=== PATIENT | female | born 1975 | race Caucasian/White ===

== ENCOUNTER 2016-10-17 17:34 | Observation (INO) | payer BC, OTHER ==
[2016-10-17] VITALS (8 sets, daily range): BP systolic 128–132; BP diastolic 62–77; PULSE 75–80; RESP 16–18; TEMP 96.7–98.5; O2SAT 95–97
[~2016-10-17] VITALS: Ht 165.1 cm; Wt 120.0 kg
[~2016-10-17 17:34] MED LIST: BACT800T5 PO; CEPH-460 PO; IBUP800T23 PO; MUPI2OIN TOPICAL
[2016-10-17] MEDS ORDERED: SODIUM CHLORIDE 0.9% FLUSH 10 ML FLUSH IVF PRN (18:15)
--- NOTE | 2016-10-17 18:22 | PD ---
HPI Chief Complaint: Chest Pain Time Seen by Provider: 18:06 Travel History International Travel<30 days: No Contact w/Intl Traveler<30days: No Traveled to known affect area: No History of Present Illness HPI This is a 41-year-old female with no significant past history, presents today with complaints of palpitations. Patient reports that she's been feeling her heart beating in her chest. She reports it's bleeding so hard that it hurts. She also reports tightness in her chest. She denies any nausea or diaphoresis. She does report shortness of breath with the discomfort. The patient has no history of cardiovascular disease. Patient also reports swelling of her bilateral lower extremities for the last several days. She states that she goes to bed the swelling goes down when she is up on her feet, the swelling returns. 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) Reported Meds & Prescriptions Reported Meds & Active Scripts Active No Active Prescriptions or Reported Medications Review of Systems Except as stated in HPI: all other systems reviewed are Neg General / Constitutional: No: Fever, Chills HENT: No: Headaches, Lightheadedness Cardiovascular: Positive: Chest Pain or Discomfort (tightness), Palpitations, Edema, No: Irregular Rhythm, Syncope Respiratory: Positive: Shortness of Breath, No: Cough (1 the palpitations,), Wheezing Gastrointestinal: No: Nausea (bilateral lower extremity), Vomiting, Abdominal Pain Genitourinary: No: Dysuria, Nocturia Musculoskeletal: Positive: Edema (during the day, goes down at night.), No: Weakness, Pain Neurologic: No: Weakness, Dizziness, Ataxia, Headache Physical Exam Narrative GENERAL: Well-nourished, well-developed patient, in no acute respiratory distress.. SKIN: Focused skin assessment warm/dry. HEAD: Normocephalic/atraumatic. EYES: No scleral icterus. No injection or drainage. NECK: Supple, trachea midline. No JVD or lymphadenopathy. CARDIOVASCULAR: Regular rate and rhythm without murmurs, gallops, or rubs. RESPIRATORY: Breath sounds equal bilaterally. No accessory muscle use. GASTROINTESTINAL: Abdomen soft, non-tender, nondistended. No rebound or guarding. MUSCULOSKELETAL: No cyanosis, or trace pretibial edema. NEUROLOGICAL: Awake and alert. Cranial nerves II through XII intact. Motor grossly within normal limits. Five out of 5 muscle strength in all muscle groups. Normal speech. Data Data Last Documented VS Vital Signs Date Time Temp Pulse Resp B/P Pulse Ox O2 Delivery O2 Flow Rate FiO2 10/17/16 18:47 97 Room Air 10/17/16 17:48 98.5 80 16 130/64 Orders Electrocardiogram (10/17/16 18:12) B-Type Natriuretic Peptide (10/17/16 18:12) Ckmb (Isoenzyme) Profile (10/17/16 18:12) Complete Blood Count With Diff (10/17/16 18:12) Comprehensive Metabolic Panel (10/17/16 18:12) Magnesium (Mg) (10/17/16 18:12) Troponin I (10/17/16 18:12) Chest, Single Ap (10/17/16 18:12) Ecg Monitoring (10/17/16 18:12) Bilateral Bp Monitoring (10/17/16 18:12) Iv Access Insert/Monitor (10/17/16 18:12) Oximetry (10/17/16 18:12) Oxygen Administration (10/17/16 18:12) Sodium Chloride 0.9% Flush (Ns Flush) (10/17/16 18:15) Thyroid Stimulating Hormone (10/17/16 18:12) Labs Laboratory Tests Test 10/17/16 18:31 White Blood Count 9.5 TH/MM3 Red Blood Count 4.70 MIL/MM3 Hemoglobin 11.8 GM/DL Hematocrit 35.7 % Mean Corpuscular Volume 75.9 FL Mean Corpuscular Hemoglobin 25.1 PG Mean Corpuscular Hemoglobin 33.0 % Concent Red Cell Distribution Width 13.5 % Platelet Count 277 TH/MM3 Mean Platelet Volume 7.8 FL Neutrophils (%) (Auto) 71.0 % Lymphocytes (%) (Auto) 20.1 % Monocytes (%) (Auto) 4.7 % Eosinophils (%) (Auto) 3.8 % Basophils (%) (Auto) 0.4 % Neutrophils # (Auto) 6.8 TH/MM3 Lymphocytes # (Auto) 1.9 TH/MM3 Monocytes # (Auto) 0.4 TH/MM3 Eosinophils # (Auto) 0.4 TH/MM3 Basophils # (Auto) 0.0 TH/MM3 CBC Comment DIFF FINAL Differential Comment Sodium Level 141 MEQ/L Potassium Level 3.9 MEQ/L Chloride Level 107 MEQ/L MDM Medical Decision Making Medical Screen Exam Complete: Yes Emergency Medical Condition: Yes Differential Diagnosis ACS versus paroxysmal atrial fibrillation versus electrolyte abnormalities versus CHF Narrative Course 41-year-old female presents to the palpitations and chest tightness. The patient has no cardiac history. EKG shows first-degree sinus degree block without any evidence of acute ST elevation or depression. Cardiac enzymes are pending at this time. The patient be signed out to Dr. Xavier, physician replacing me at change of shift. Disposition will be per him. At the very least I think she would benefit from chest pain center admission. Diagnosis Primary Impression: Chest pain Additional Impressions: Palpitations Bilateral lower extremity edema Scripts No Active Prescriptions or Reported Meds Bashir Amezquita MD Oct 17, 2016 18:22
[2016-10-17 18:47] LABS: AUTOMATED NEUTROPHIL # 6.8 TH/MM3 (1.8-7.7); BASOPHIL % 0.4 % (0.0-2.0); EOSINOPHIL # 0.4 TH/MM3 (0-0.4); EOSINOPHIL % 3.8 % (0.0-4.0); HEMATOCRIT 35.7 % (35.0-46.0); HEMO FLAGS DIFF FINAL; LYMPH % 20.1 % (9.0-44.0); LYMPHOCYTE # 1.9 TH/MM3 (1.0-4.8); MEAN CELL VOLUME 75.9 FL (80.0-100.0); MEAN CORPUSCULAR HEMOGLOBIN 25.1 PG (27.0-34.0); MONO % 4.7 % (0.0-8.0); PLATELET COUNT 277 TH/MM3 (150-450); RED CELL DISTRIBUTION WIDTH 13.5 % (11.6-17.2); WHITE BLOOD COUNT 9.5 TH/MM3 (4.0-11.0)
[2016-10-17 18:56] LABS: CHLORIDE 107 MEQ/L (98-107); POTASSIUM 3.9 MEQ/L (3.5-5.1); SODIUM (NA) 141 MEQ/L (136-145)
[2016-10-17 19:00] LABS: ANION GAP 6 MEQ/L (5-15); BICARBONATE 27.8 MEQ/L (21.0-32.0); MAGNESIUM 2.1 MG/DL (1.5-2.5)
[2016-10-17 19:01] LABS: BLOOD UREA NITROGEN 8 MG/DL (7-18)
[2016-10-17 19:03] LABS: ALT (GPT) 55 U/L (10-53)
[2016-10-17 19:04] LABS: AST (GOT) 53 U/L (15-37); GLOMERULAR FILTRATION RATE 128 ML/MIN (>89)
[2016-10-17 19:05] LABS: TOTAL BILIRUBIN ADULT 0.3 MG/DL (0.2-1.0)
--- NOTE | 2016-10-17 19:05 | PD ---
Physical Exam Date Seen by Provider: Oct 17, 2016 Narrative GENERAL: SKIN: Warm and dry. HEAD: Atraumatic. Normocephalic. EYES: Pupils equal and round. No scleral icterus. No injection or drainage. ENT: No nasal bleeding or discharge. Mucous membranes pink and moist. NECK: Trachea midline. No JVD. CARDIOVASCULAR: Regular rate and rhythm. RESPIRATORY: No accessory muscle use. Clear to auscultation. Breath sounds equal bilaterally. GASTROINTESTINAL: Abdomen soft, non-tender, nondistended. MUSCULOSKELETAL: Extremities without clubbing, cyanosis, or edema. No obvious deformities. NEUROLOGICAL: Awake and alert. No obvious cranial nerve deficits. Motor grossly within normal limits. Five out of 5 muscle strength in the arms and legs. Normal speech. PSYCHIATRIC: Appropriate mood and affect; insight and judgment normal. Data Data Last Documented VS Vital Signs Date Time Temp Pulse Resp B/P Pulse Ox O2 Delivery O2 Flow Rate FiO2 10/17/16 18:47 97 Room Air 10/17/16 17:48 98.5 80 16 130/64 Orders Electrocardiogram (10/17/16 18:12) B-Type Natriuretic Peptide (10/17/16 18:12) Ckmb (Isoenzyme) Profile (10/17/16 18:12) Complete Blood Count With Diff (10/17/16 18:12) Comprehensive Metabolic Panel (10/17/16 18:12) Magnesium (Mg) (10/17/16 18:12) Troponin I (10/17/16 18:12) Chest, Single Ap (10/17/16 18:12) Ecg Monitoring (10/17/16 18:12) Bilateral Bp Monitoring (10/17/16 18:12) Iv Access Insert/Monitor (10/17/16 18:12) Oximetry (10/17/16 18:12) Oxygen Administration (10/17/16 18:12) Sodium Chloride 0.9% Flush (Ns Flush) (10/17/16 18:15) Thyroid Stimulating Hormone (10/17/16 18:12) Labs Laboratory Tests Test 10/17/16 18:31 White Blood Count 9.5 TH/MM3 Red Blood Count 4.70 MIL/MM3 Hemoglobin 11.8 GM/DL Hematocrit 35.7 % Mean Corpuscular Volume 75.9 FL Mean Corpuscular Hemoglobin 25.1 PG Mean Corpuscular Hemoglobin 33.0 % Concent Red Cell Distribution Width 13.5 % Platelet Count 277 TH/MM3 Mean Platelet Volume 7.8 FL Neutrophils (%) (Auto) 71.0 % Lymphocytes (%) (Auto) 20.1 % Monocytes (%) (Auto) 4.7 % Eosinophils (%) (Auto) 3.8 % Basophils (%) (Auto) 0.4 % Neutrophils # (Auto) 6.8 TH/MM3 Lymphocytes # (Auto) 1.9 TH/MM3 Monocytes # (Auto) 0.4 TH/MM3 Eosinophils # (Auto) 0.4 TH/MM3 Basophils # (Auto) 0.0 TH/MM3 CBC Comment DIFF FINAL Differential Comment Sodium Level 141 MEQ/L Potassium Level 3.9 MEQ/L Chloride Level 107 MEQ/L Carbon Dioxide Level 27.8 MEQ/L Anion Gap 6 MEQ/L Blood Urea Nitrogen 8 MG/DL Random Glucose 105 MG/DL Calcium Level 8.3 MG/DL Magnesium Level 2.1 MG/DL Albumin 3.3 GM/DL MDM Medical Record Reviewed: Yes Supervised Visit with STEVE: No Interpretation(s) nsr 81, first degree av block, no stemi pattern, mild flattening of t wave on avl Diagnosis Primary Impression: Chest pain Qualified Code: R07.9 - Chest pain, unspecified type Additional Impressions: Palpitations Bilateral lower extremity edema Admitting Information Admitting Physician Requests: Observation Patient Instructions: General Instructions Departure Forms: Tests/Procedures Scripts No Active Prescriptions or Reported Meds Lealnd Xavier MD Oct 17, 2016 19:05
[2016-10-17 19:06] LABS: ALKALINE PHOSPHATASE 96 U/L (45-117); CREATINE KINASE 121 U/L (26-192)
--- NOTE | 2016-10-17 19:06 | RADRPT ---
EXAM DATE/TIME: 10/17/2016 18:30 [facility] COMPARISON: No previous studies available for comparison. INDICATIONS : Chest pain. MEDICAL HISTORY : None. SURGICAL HISTORY : None. ENCOUNTER: Initial ACUITY: 1 day PAIN SCORE: 4/10 LOCATION: chest Substernal. FINDINGS: A single view of the chest demonstrates the lungs to be symmetrically aerated without evidence of mas s, infiltrate or effusion. The cardiomediastinal contours are unremarkable. Osseous structures are intact. CONCLUSION: No evidence of acute cardiopulmonary disease. Juan Rios MD on October 17, 2016 at 19:05 Board Certified Radiologist. This report was verified electronically.
[2016-10-17] MEDS ORDERED: SODIUM CHLORIDE 0.9% FLUSH 10 ML FLUSH IV FLUSH PRN (20:15)
[2016-10-17] MEDS ORDERED: ONDANSETRON HCL 4 MG/2 ML VIAL IVP ONE (20:30)
[2016-10-17] MEDS: SODIUM CHLORIDE 0.9% FLUSH 10 ML FLUSH IV FLUSH SCH (20:43)
[2016-10-17 22:12] LABS: BETA HCG QUANT LESS THAN 1 MIU/ML (0-5)
[2016-10-17 22:13] LABS: CREATINE KINASE 101 U/L (26-192)
[2016-10-17 22:26] LABS: CKMB 0.9 NG/ML (0.5-3.6)
[2016-10-17] MEDS ORDERED: NITROGLYCERIN 0.4 MG SL 25 TABS/BTL SL ONE (22:30)
--- NOTE | 2016-10-17 23:03 | RADRPT ---
EXAM DATE/TIME: 10/17/2016 22:41 [facility] COMPARISON: No previous studies available for comparison. INDICATIONS : Bilateral leg swelling. Chest pain. MEDICAL HISTORY : Ovarian cyst. MRSA. SURGICAL HISTORY : Ovarian cyst removed. ENCOUNTER: Initial ACUITY: 1 week PAIN SCORE: 2/10 LOCATION: Bilateral leg. TECHNIQUE: Venous ultrasound of the left and right leg was performed from the inguinal ligament to the proximal calf. Real-time, color Doppler and spectral tracing, compression and augmentation techniques were us ed. FINDINGS: RIGHT LEG: There is normal compressibility of the deep venous system from the inguinal region to the proximal ca lf. No echogenic clot is seen in the lumen of the common femoral, femoral, popliteal, and posterior tibial veins. There is a normal response of the venous system to proximal and distal augmentation an d respiration. LEFT LEG: There is normal compressibility of the deep venous system from the inguinal region to the proximal ca lf. No echogenic clot is seen in the lumen of the common femoral, femoral, popliteal, and posterior tibial veins. There is a normal response of the venous system to proximal and distal augmentation an d respiration. CONCLUSION: The study is negative for deep venous thrombosis bilateral lower extremity. Chris Neely MD on October 17, 2016 at 23:01 Board Certified Radiologist. This report was verified electronically.
[2016-10-17] MEDS ORDERED: MORPHINE SULFATE 4 MG/ML INJ IV PUSH ONE (23:45)
[2016-10-17] MEDS ORDERED: IOHEXOL 350 MG/ML 10 ML VIAL (for RAD DIAG) IV ONE (23:55)
--- NOTE | 2016-10-18 00:02 | RADRPT ---
EXAM DATE/TIME: 10/17/2016 23:40 [facility] COMPARISON: No previous studies available for comparison. INDICATIONS : Chest pain. Evaluate for pulmonary embolism IV CONTRAST: 75 cc Omnipaque 350 (iohexol) IV RADIATION DOSE: 21.74 CTDIvol (mGy) MEDICAL HISTORY : None SURGICAL HISTORY : None. ENCOUNTER: Initial ACUITY: 1 day PAIN SCALE: 4/10 LOCATION: Bilateral chest TECHNIQUE: Volumetric scanning of the chest was performed using a pulmonary embolism protocol MIP images were re constructed. Using automated exposure control and adjustment of the mA and/or kV according to patien t size, radiation dose was kept as low as reasonably achievable to obtain optimal diagnostic quality images. DICOM format image data is available electronically for review and comparison. Follow-up recommendations for detected pulmonary nodules are based at a minimum on nodule size and pa tient risk factors according to Fleischner Society Guidelines. FINDINGS: PULMONARY ARTERIES: No filling defects are seen in the pulmonary arteries through the segmental level. LUNGS: Small area of consolidation with air bronchograms adjacent to the right cardiophrenic angle measuring 1.5 cm. The left lung is clear. PLEURAE: There is no pleural thickening or pleural effusion. MEDIASTINUM: There is good visualization of the great vessels of the middle mediastinum. There is a 0.9 x 2.0 cm node in the right hilar region, nonspecific. CONCLUSION: 1. The study is negative for pulmonary embolism. 2. Small infiltrate in the medial right lower lung. 3. 2 cm right hilar node, nonspecific. Chris Neely MD on October 17, 2016 at 23:57 Board Certified Radiologist. This report was verified electronically.
[2016-10-18 04:00] VITALS: BP 132/78; PULSE 78; RESP 16; TEMP 97.2; O2SAT 96
[2016-10-18 04:09] LABS: CREATINE KINASE 92 U/L (26-192)
--- NOTE | 2016-10-18 05:03 | EKG ---
Date Performed: 10/17/2016 Time Performed: 21:31:27 PTAGE: 41 years EKG: Sinus rhythm NORMAL ECG Compared to the PREVIOUS TRACING T-wave inversion is seen in the inferior leads. This is nonspecific. TN EVIOUS TRACIN10/17/2016 18.29 DOCTOR: Zac Felix Interpretating Date/Time 10/18/2016 05:02:06
--- NOTE | 2016-10-18 05:10 | EKG ---
Date Performed: 10/17/2016 Time Performed: 18:29:23 PTAGE: 41 years EKG: Sinus rhythm WITH FIRST DEGREE AV BLOCK ABNORMAL ECG NO PREVIOUS TRACING DOCTOR: Zac Fleix Interpretating Date/Time 10/18/2016 05:08:56
--- NOTE | 2016-10-18 07:35 | EKG ---
Date Performed: 10/18/2016 Time Performed: 00:17:15 PTAGE: 41 years EKG: Sinus rhythm NORMAL ECG Compared to prior tracing no significant change PREVIOUS TRACING : 10/17/2016 21.31 DOCTOR: Zac Felix Interpretating Date/Time 10/18/2016 07:34:38
[2016-10-18 08:00] VITALS: O2SAT 93
[2016-10-18 08:03] VITALS: BP 127/76; PULSE 72; RESP 19; TEMP 96.5; O2SAT 96
[2016-10-18] MEDS: SODIUM CHLORIDE 0.9% FLUSH 10 ML FLUSH IV FLUSH SCH (09:00)
--- NOTE | 2016-10-18 09:33 | HHI.HP ---
HPI Service [facility] Primary Care Physician No Primary Care Physician Admission Diagnosis PALPITATIONS, CP R/O CA Diagnoses: (1) Chest pain Diagnosis: Principal Chief Complaint: Chest heaviness Travel History International Travel<30 Days: No Contact w/Intl Traveler <30 Da: No Traveled to Known Affected Are: No History of Present Illness Written by Frank Bruce, acting as scribe for Dr. Escobar on 10/18/16 at 09: 32. 41-year-old female with no chronic medical illnesses who presented to hospital because of chest discomfort. Patient indicates that over the last month she's been experiencing a heaviness type sensation in her chest where she describes a medium size elephant sitting on her chest with associated shortness of breath, nausea, lightheadedness. Patient also indicates that she been experiencing bilateral lower extremity edema over the last month .She states that the heaviness is constant with worsening on exertion. She states that it got worse yesterday when they have returned back from [place] so she came to the hospital for evaluation. Patient indicates that she was given some nitroglycerin last night which did provide minimal relief. Patient did have recent car travel to [place] and back to drop her son off to college. Patient had workup done which did not indicate any DVT or pulmonary emboli. Patient never undergone any cardiac workup previously. At the present time she is experiencing discomfort. She does not feel that she can participate in exercise stress test. Patient does not have a primary medical doctor at the present time. Patient was recommended observation chest pain center. 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 Father had heart disease but no indication of any myocardial infarction, coronary artery disease. Social History Patient denies any tobacco, alcohol or illicit drugs Physical Exam Vital Signs Vital Signs Date Time Temp Pulse Resp B/P Pulse Ox O2 Delivery O2 Flow Rate FiO2 10/18/16 08:03 96.5 72 19 127/76 96 10/18/16 08:00 93 10/18/16 04:00 97.2 78 16 132/78 96 10/17/16 23:00 75 10/17/16 22:33 96.7 76 18 129/77 95 10/17/16 22:05 18 97 10/17/16 21:39 77 18 132/62 97 Room Air 10/17/16 20:50 96 21 10/17/16 19:59 78 128/68 132/66 10/17/16 19:58 78 18 128/68 97 Room Air 10/17/16 18:47 97 Room Air 10/17/16 18:47 97 Room Air 10/17/16 17:48 98.5 80 16 130/64 96 Physical Exam GENERAL: Well-developed, well-nourished, in no acute distress. alert and orientated HEENT: Head is normocephalic without any lesions or masses noted. Facial features are symmetric. Eyes: Pupils equal round reactive to light. Extraocular muscles are intact. Conjunctivae were clear. Oropharyngeal: Pharynx without any erythema edema. Tongue is midline without deviation. Buccal mucosa is moist without any masses or lesions NECK: Supple without any masses. Trachea midline no deviation. No JVD, no bruits are appreciated CARDIAC: Regular rhythm, regular rate. S1/S2 are heard. No murmurs gallops or rubs. LUNGS: Clear to auscultation bilaterally. No wheeze, rhonchi or rales. No use of accessory muscles on inspiration or expiration. ABDOMEN: Soft, nontender. Nondistended. Bowel sounds heard in all 4 quadrants. No organomegaly or masses. Negative rebound, negative guarding EXTREMITIES: No edema, pulses are equal bilaterally. No cyanosis or clubbing NEUROLOGY: Mood and affect appear appropriate. Cranial nerves II through XII grossly intact. Muscle strength 5/5 in upper and lower extremities bilaterally. Deep tendon reflexes are 2+ in upper and lower extremities bilaterally. Laboratory Laboratory Tests Test 10/17/16 10/17/16 10/17/16 10/18/16 18:31 21:35 21:40 00:20 White Blood Count 9.5 Red Blood Count 4.70 Hemoglobin 11.8 Hematocrit 35.7 Mean Corpuscular Volume 75.9 Mean Corpuscular Hemoglobin 25.1 Mean Corpuscular Hemoglobin 33.0 Concent Red Cell Distribution Width 13.5 Platelet Count 277 Mean Platelet Volume 7.8 Neutrophils (%) (Auto) 71.0 Lymphocytes (%) (Auto) 20.1 Monocytes (%) (Auto) 4.7 Eosinophils (%) (Auto) 3.8 Basophils (%) (Auto) 0.4 Neutrophils # (Auto) 6.8 Lymphocytes # (Auto) 1.9 Monocytes # (Auto) 0.4 Eosinophils # (Auto) 0.4 Basophils # (Auto) 0.0 CBC Comment DIFF FINAL Differential Comment D-Dimer Quantitative (PE/DVT) 0.59 Sodium Level 141 Potassium Level 3.9 Chloride Level 107 Carbon Dioxide Level 27.8 Anion Gap 6 Blood Urea Nitrogen 8 Creatinine 0.53 Estimat Glomerular Filtration 128 Rate Random Glucose 105 Calcium Level 8.3 Magnesium Level 2.1 Total Bilirubin 0.3 Aspartate Amino Transf 53 (AST/SGOT) Alanine Aminotransferase 55 (ALT/SGPT) Alkaline Phosphatase 96 Total Creatine Kinase 121 101 92 Creatine Kinase MB 1.0 0.9 Troponin I LESS THAN 0.02 LESS THAN 0.02 LESS THAN 0.02 B-Type Natriuretic Peptide 27 Total Protein 7.3 Albumin 3.3 Thyroid Stimulating Hormone 2.490 3rd Gen Human Chorionic Gonadotropin, LESS THAN 1 Quant Result Diagram: 10/17/16 1831 10/17/16 1831 Imaging Last Impressions Chest X-Ray 10/17/16 1812 Signed Impressions: Service Date/Time: Monday, October 17, 2016 18:30 - CONCLUSION: No evidence of acute cardiopulmonary disease. uJan Rios MD Lower Extremity Ultrasound 10/17/16 0000 Signed Impressions: Service Date/Time: Monday, October 17, 2016 22:41 - CONCLUSION: The study is negative for deep venous thrombosis bilateral lower extremity. Chris Neely MD CT Angiography 10/17/16 0000 Signed Impressions: Service Date/Time: Monday, October 17, 2016 23:40 - CONCLUSION: 1. The study is negative for pulmonary embolism. 2. Small infiltrate in the medial right lower lung. 3. 2 cm right hilar node, nonspecific. Chris Neely MD Assessment and Plan Assessment and Plan Chest discomfort, atypical Patient with minimal risk factors to include body habitus, family history of heart disease Patient has been ruled out for any embolic event with mildly elevated d-dimer, however CT angiogram of the chest as well as lower extremity ultrasound were negative Patient has been ruled out for any acute coronary event with serial cardiac enzymes which are negative, serial EKGs do not indicate any changes We'll pursue nuclear stress test rule out any underlying ischemia DVT prevention Low risk, early ambulation This note was transcribed by edwar Bruce. I, Dr. Jovi Escobar personally performed the history, physical exam, and medical decision making; and confirmed the accuracy of the information in the transcribed note. Authenticated by Dr. Jovi Escobar on 10/18/16 at 09:32. Discharge disposition Discharge home in stable condition if stress test is negative Activity: Ad barrett. Diet: Regular diet Medications per medication reconciliation Follow-up primary medical doctor in one week Code Status Full code Problem Qualifiers (1) Chest pain: Qualified Code: R07.9 - Chest pain, unspecified type Frank Bruce Oct 18, 2016 09:33 Jovi Escobar MD Oct 18, 2016 09:33
[2016-10-18] MEDS ORDERED: ACETAMINOPHEN 325 MG TAB PO PRN ×2 (10:45)
[2016-10-18] MEDS ORDERED: ONDANSETRON HCL 4 MG/2 ML VIAL IV PRN (10:45)
[2016-10-18] MEDS ORDERED: REGADENOSON INJ 0.4 MG/5 ML SYR IV ONE (11:20)
[2016-10-18 12:18] VITALS: BP 127/76; PULSE 72; RESP 19; TEMP 96.5; O2SAT 96
--- NOTE | 2016-10-18 13:40 | RADRPT ---
EXAM DATE/TIME: 10/18/2016 11:10 [facility] COMPARISON: No previous studies available for comparison. INDICATIONS : Chest tightness and palpitations. Angina. DOSE: 35 mCi Tc99m Myoview at stress. 11 mCi Tc99m Myoview at rest. 0.4 mg Lexiscan STRESS SYMPTOMS: Nausea and voming. EJECTION FRACTION: 70% MEDICAL HISTORY : None SURGICAL HISTORY : Ovarian cyst removed. ENCOUNTER: Initial ACUITY: 1 day PAIN SCALE: 1/10 LOCATION: Bilateral chest TECHNIQUE: The patient underwent pharmacologic stress with infusion of prescribed dose. Continuous ECG tracing was monitored during stress. Gated SPECT imaging was performed after stress and conventional SPECT i maging was performed at rest. The examination was performed on a SPECT/CT scanner, both attenuation and non-corrected datasets were reviewed. FINDINGS: DISTRIBUTION: The maximum perfused segment at stress is in the anterior wall. PERFUSION STUDY: The pattern of perfusion at stress is within normal limits. GATED STUDY: There is intact wall motion and thickening without hypokinetic or dyskinetic segments. CONCLUSION: No ischemia is seen. RISK CATEGORY: Low (<1% Annual Mortality Rate) Juan Metcalf MD on October 18, 2016 at 13:36 Board Certified Radiologist. This report was verified electronically.
--- NOTE | 2016-10-18 13:58 | HHI.DCPOC ---
Discharge Care Plan Diagnosis: (1) Chest pain Goals to Promote Your Health * To prevent worsening of your condition and complications * To maintain your health at the optimal level Directions to Meet Your Goals Take your medications as prescribed Follow your dietary instruction Follow activity as directed Keep your appointments as scheduled Take your immunizations and boosters as scheduled If your symptoms worsen call your PCP, if no PCP go to Urgent Care Center or Emergency Room Smoking is Dangerous to Your Health. Avoid second hand smoke Call the 24-hour hour crisis hotline for domestic abuse at Frank Bruce Oct 18, 2016 13:58
--- NOTE | 2016-10-18 16:56 | TR ---
Date Performed: 10/18/2016 Time Performed: 11:34:07 DOCTOR: Maegan Sheikh DRUG LIST: CLINICAL HISTORY: REASON FOR TEST: REASON FOR ENDING: OBSERVATION: CONCLUSION: Lexiscan stress test was performed under standard four minute protocol. Radionuclid e was injected one minute prior to ending the test. No electrocardiographic abormalities were present to suggest ischemia. Nuclear imaging and interpretation are pending. COMMENTS:
== END 2016-10-18 16:15 | disposition home or self-care (01) ==
LOC: PHED 17:34 → PHEDA 20:28 → PH3A 22:00
PROVIDERS: ADMIT Hospitalist; ATTEND Hospitalist
DX: R00.2 Palpitations (principal); R07.89 Other chest pain; R94.31 Abnormal electrocardiogram [ECG] [EKG]; R06.02 Shortness of breath; R42 Dizziness and giddiness; R60.0 Localized edema; Z82.49 Family history of ischemic heart disease and other diseases of the circulatory system
CPT/HCPCS: 71010; 71275; 78452; 80053; 82550; 82552; 83735; 83880; 84443; 84484; 84702; 85025; 85379; 93005; 93017; 93970; 96374; 96375; 99285; A9502; G0378; J2270; J2405; J2785; Q9967